=== PATIENT | female | born 1975 | race Caucasian/White ===

== ENCOUNTER 2019-06-10 14:31 | Emergency (ER) | payer BC ==
[~2019-06-10] VITALS: Ht 170.2 cm; Wt 62.3 kg
[2019-06-10 15:58] LABS: BASOPHILS # (AUTO) 0.08 x10^3/uL (0-0.1); BASOPHILS % (AUTO) 1 % (0-1); EOSINOPHILS # (AUTO) 0.06 x10^3/uL (0-0.4); EOSINOPHILS % (AUTO) 1 % (1-7); LYMPHOCYTES # (AUTO) 1.37 x10^3/uL (1-3.4); LYMPHOCYTES % (AUTO) 19 % (22-44); MD NO; MEAN CORPUSCULAR HEMOGLOBIN 26.6 pg (27.0-34.8); MEAN CORPUSCULAR HGB CONC 31.9 g/dL (32.4-35.8); MEAN CORPUSCULAR VOLUME 83.4 fL (80-100); MEAN PLATELET VOLUME 7.5 fL (7.4-10.4); MONOCYTES % (AUTO) 5 % (2-9); NEUTROPHILS # (AUTO) 5.42 x10^3/uL (1.8-6.8); NEUTROPHILS % (AUTO) 74 % (42-75); PLATELET COUNT 246 x10^3/uL (130-400); RED BLOOD COUNT 5.26 x10^6/uL (3.82-5.3); RED CELL DISTRIBUTION WIDTH 19.6 % (9.6-15.2)
--- NOTE | 2019-06-10 16:10 | NUR ---
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
--- NOTE | 2019-06-10 16:21 | NUR ---
PT STATES " I THINK I AM HAVING A MISCARRIAGE" CO OF CRAMPING AND BLEEDING SINCE 1030 AM. PT A 3. PT RESTING COMFORTABLE IN BED. UA OBTAINED. FAMILY ACCOMPANY PT
[2019-06-10 17:20] VITALS: BP 97/58
--- NOTE | 2019-06-10 17:21 | NUR ---
pt resting comfortable. pt states "i am having alot of cramping"
[2019-06-10 17:42] LABS: MICROSCOPIC AUTO
[2019-06-10 17:44] LABS: CULTURE INDICATED? NO
--- NOTE | 2019-06-10 17:46 | NUR ---
Patient/Caregiver given discharge instructions and they have confirmed that they understand the instructions. Patient ambulatory with steady gait.
== END 2019-06-10 18:01 | disposition home or self-care (01) ==
LOC: ED 17:50
DX: O03.9 Complete or unspecified spontaneous abortion without complication (principal)
CPT/HCPCS: 36415; 76801; 81001; 84702; 85025; 86901; 99284

== ENCOUNTER 2019-06-11 08:34 | Emergency (ER) | payer BC ==
[~2019-06-11] VITALS: Ht 170.2 cm; Wt 61.6 kg
--- NOTE | 2019-06-11 08:45 | NUR ---
SEEN YESTERDAY FOR A POSSIBLE MISCARRIAGE. HERE TODAY WITH INCREASED PAIN AND BLEEDING. Has saturated 3 heavy duty feminine pads since 745am this vss, good color Provider at bedside
[2019-06-11] MEDS ORDERED: ONDANSETRON 2MG/ML, 2ML IVPush ONE (09:00)
[2019-06-11] MEDS ORDERED: SODIUM CHLORIDE FLUSH 10ML SYR IVF ONE (09:00)
--- NOTE | 2019-06-11 09:00 | NUR ---
left hand piv placed from which labs including t&s sent with lab at bedside to verify Patient then medicated per EMAR for pelvic cramping rated at 06/21 To US at 0919
[2019-06-11] MEDS ORDERED: ONDANSETRON 2MG/ML, 2ML ONE (09:07)
[2019-06-11] MEDS ORDERED: MORPHINE SULFATE 4 MG/ML, 1ML ONE ×2 (09:07→10:08)
[2019-06-11] MEDS: MORPHINE SULFATE 4 MG/ML, 1ML IVPush PRN ×2 (09:14→10:10)
[2019-06-11 09:17] LABS: BASOPHILS # (AUTO) 0.09 x10^3/uL (0-0.1); BASOPHILS % (AUTO) 1 % (0-1); EOSINOPHILS # (AUTO) 0.09 x10^3/uL (0-0.4); EOSINOPHILS % (AUTO) 1 % (1-7); LYMPHOCYTES % (AUTO) 13 % (22-44); MD NO; MEAN CORPUSCULAR HEMOGLOBIN 26.7 pg (27.0-34.8); MEAN CORPUSCULAR HGB CONC 31.9 g/dL (32.4-35.8); MEAN CORPUSCULAR VOLUME 83.7 fL (80-100); MEAN PLATELET VOLUME 7.7 fL (7.4-10.4); MONOCYTES # (AUTO) 0.51 x10^3/uL (0.2-0.8); MONOCYTES % (AUTO) 6 % (2-9); NEUTROPHILS # (AUTO) 7.16 x10^3/uL (1.8-6.8); NEUTROPHILS % (AUTO) 79 % (42-75); PLATELET COUNT 225 x10^3/uL (130-400); RED BLOOD COUNT 5.35 x10^6/uL (3.82-5.3); RED CELL DISTRIBUTION WIDTH 20.1 % (9.6-15.2)
--- NOTE | 2019-06-11 09:51 | NUR ---
Back from US US tech reports she had to clean up a significant bright red vaginal bleeding (half a chux pad) PAtient reports pelvic cramping pain improved from 9 to 6- still very uncomfortablr Provider made aware VSS on pox/nibp
--- NOTE | 2019-06-11 10:10 | NUR ---
re-medicated per emar for continued pain rated at 04/21 Testing results reviewed w/ provider- to perform pelvic exam then potential dispo
--- NOTE | 2019-06-11 10:34 | NUR ---
PROVIDER AT BEDSIDE PERFORMING PELVIC-SIGNIFICANT BLEEDING REPORTED BY PROVIDER
--- NOTE | 2019-06-11 10:40 | NUR ---
PAIN IMPROVED TO 0/10-NOW NAPPING ON GURNEY REVIEWED POC- PROVIDER TO SPEAK TO OB THEN PROBABLE DISPO VITALS REMAIN UNCHANGED
--- NOTE | 2019-06-11 11:04 | NUR ---
paged dr gutierrez for [facility]
--- NOTE | 2019-06-11 11:11 | NUR ---
dr gutierrez returned call to [facility]
--- NOTE | 2019-06-11 11:42 | NUR ---
500ml ns bolus administered per emar. Vitals remain unchanged on pox/nibp 71, 107/52
[2019-06-11] MEDS ORDERED: SODIUM CHLORIDE 0.9% 1,000ML IVBOLUS ONE ×2 (12:00→13:00)
--- NOTE | 2019-06-11 12:32 | NUR ---
500ML IVF COMPLETE TOLERATING PO FLUIDS/SOLIDS REPORTING DIZZINESS AT 2/10-NOT MADE WORSE WITH AMBULATION. ALSO REPORTS CONTINUED CRAMPING ORTHOSTATIC NEGATIVE: LYING 72, 102/53, STANDING 74, 100/50 PROVIDER MADE AWARE- TO ADMINISTER ADDITIONAL FLUIDS/MEDICATE FOR PAIN
[2019-06-11] MEDS ORDERED: KETOROLAC 30 MG/1 ML ONE (12:40)
[2019-06-11] MEDS ORDERED: KETOROLAC 30 MG/1 ML IM ONE (13:00)
--- NOTE | 2019-06-11 13:25 | NUR ---
Repeat road test improved-dizziness down to 2/10. Vitals remain unchanged. However with road test patient reports passage of 2 large clots (palm sized then additional bright red blood)- Provider back to room to reassess. Plan to dispo as bleeding expected, vitals reflective of morphine & to help patient keep and close eye on patient until f/u with OB within 2 days.
[2019-06-11 13:29] VITALS: BP 107/73
[2019-06-12] MEDS ORDERED: PAIN MED (13:03)
== END 2019-06-11 13:33 | disposition home or self-care (01) ==
LOC: ED 08:57
DX: O03.9 Complete or unspecified spontaneous abortion without complication (principal)
CPT/HCPCS: 36415; 76801; 85025; 86850; 86900; 96361; 96372; 96374; 96376; 99284; J1885; J2270; J7030

== ENCOUNTER 2019-06-12 12:22 | Emergency (ER) | payer BC ==
[~2019-06-12] VITALS: Ht 170.2 cm; Wt 61.6 kg
--- NOTE | 2019-06-12 12:41 | NUR ---
DR CABRERA RETURNED CALL TO DR POLO
[2019-06-12] MEDS ORDERED: OXYTOCIN 10 UNITS/ML, 1ML IM ONE (12:44)
--- NOTE | 2019-06-12 12:56 | NUR ---
PT STATES SHE'S LOSING HER BABY. 8 WKS, LMP 03/28/19. 1 OB VISIT W/ THIS . WAS TO SEE SPECIALIST - BLEEDING STARTED Sunday06/10/19 - WAS SEEN IN THIS ED ON SUNDAY & SUNDAY. BLED THROUGH 3 PADS IN 20 MINS. C/O CRAMPING PAIN. DENIES NAUSEA. TOOK PAIN MED ABOUT 1000 TODAY. LAST ORAL INTAKE: 1100 (2 EGG ROLLS, FRUIT PUNCH). G6, P3, AB2
[2019-06-12 12:59] LABS: ALBUMIN 3.4 g/dL (3.4-5.0); ANION GAP 7 mmol/L (5-15); CALCIUM 8.3 mg/dL (8.5-10.1); CHLORIDE 111 mmol/L (98-107)
[2019-06-12 13:00] LABS: CREATININE 0.88 mg/dL (0.55-1.02); MEAN CORPUSCULAR HEMOGLOBIN 27.8 pg (27.0-34.8); MEAN CORPUSCULAR HGB CONC 32.8 g/dL (32.4-35.8); MEAN CORPUSCULAR VOLUME 84.8 fL (80-100); MEAN PLATELET VOLUME 7.9 fL (7.4-10.4); PLATELET COUNT 248 x10^3/uL (130-400); RED BLOOD COUNT 3.86 x10^6/uL (3.82-5.3); RED CELL DISTRIBUTION WIDTH 19.3 % (9.6-15.2)
[2019-06-12] MEDS ORDERED: SODIUM CHLORIDE 0.9% 1,000ML IVBOLUS ONE (13:00)
[2019-06-12] MEDS ORDERED: MISOPROSTOL 200 MCG TABLET PR ONE (13:00)
[2019-06-12] MEDS ORDERED: SODIUM CHLORIDE FLUSH 10ML SYR IVF ONE (13:00)
[2019-06-12 13:01] LABS: HEMOGRAM NOTE RECHECKED
[2019-06-12] MEDS ORDERED: PAIN MED (13:03)
[2019-06-12 13:15] LABS: BASOPHILS # (AUTO) 0.06 x10^3/uL (0-0.1); BASOPHILS % (AUTO) 1 % (0-1); EOSINOPHILS # (AUTO) 0.16 x10^3/uL (0-0.4); EOSINOPHILS % (AUTO) 2 % (1-7); LYMPHOCYTES # (AUTO) 1.34 x10^3/uL (1-3.4); LYMPHOCYTES % (AUTO) 16 % (22-44); MD SCAN; MONOCYTES # (AUTO) 0.44 x10^3/uL (0.2-0.8); MONOCYTES % (AUTO) 5 % (2-9); NEUTROPHILS # (AUTO) 6.48 x10^3/uL (1.8-6.8); NEUTROPHILS % (AUTO) 76 % (42-75)
--- NOTE | 2019-06-12 13:21 | NUR ---
DR CABRERA BS. SENT PITOCIN & CYTOTEC RX ORDER TO LAB; FOLLOWED UP W/ CALL TO LAB FOR STAT ORDER.
--- NOTE | 2019-06-12 13:30 | NUR ---
PITOCIN AND CYTOTEC GIVEN TO DR CABRERA FOR ADMINISTRATION
--- NOTE | 2019-06-12 14:05 | NUR ---
[facility] L[facility] RE: LOSS PAPERWORK & PROTOCOL. STAFF MEMBER WILL SEE IF ANYONE IS AVAILABLE TO ASSIST.
--- NOTE | 2019-06-12 14:15 | NUR ---
LUKAS SHEA & BRONWYN PROVIDED TO PT. YOU ARE NOT ALONE PAPER PROVIDED. WILL GIVE PT TIME TO CONSIDER OPTIONS FOR REMAINS.
--- NOTE | 2019-06-12 14:23 | NUR ---
PT'S BROTHER NOW BS. PT RESTING COMFORTABLY ON BED, SIDE RAIL UP X1.
--- NOTE | 2019-06-12 15:50 | NUR ---
PT'S SPOUSE BS. POC DOCUMENTS COMPLETED.
[2019-06-12 16:48] VITALS: BP 99/52
== END 2019-06-12 17:15 | disposition home or self-care (01) ==
LOC: ED 12:28 → UNDOADMIN 12:29 → EDIP 12:29 → ED 12:41
DX: N93.8 Other specified abnormal uterine and vaginal bleeding (principal); Z88.0 Allergy status to penicillin
CPT/HCPCS: 36415; 80048; 82040; 85025; 86850; 86900; 88305; 99283; J7030